=== PATIENT | female | born 1995 | race African-American/Black ===

== ENCOUNTER 2016-12-01 18:23 | Emergency (ER) | payer SELFPAY ==
[~2016-12-01] VITALS: Ht 162.6 cm; Wt 40.7 kg
[2016-12-01 18:32] VITALS: BP 140/77; PULSE 74; RESP 16; TEMP 98.3; O2SAT 97
--- NOTE | 2016-12-01 18:43 | PD ---
HPI Chief Complaint: Manager Java Problem/Complaint Time Seen by Provider: 18:36 Travel History International Travel<30 days: No Contact w/Intl Traveler<30days: No Traveled to known affect area: No History of Present Illness HPI This 21-year-old female is complaining of lower abdominal discomfort. She says she's noted the odor of she has not noticed much discharge. She does not believe she is . She just finished her period a few days ago. She has never been PFSH Past Medical History ?: Not Social History Tobacco Use: No Allergies-Medications (Allergen,Severity, Reaction): Coded Allergies: No Known Allergies (Unverified , 12/01/16) Review of Systems General / Constitutional: No: Fever, Chills Eyes: No: Diploplia, Blurred Vision HENT: No: Headaches Cardiovascular: No: Chest Pain or Discomfort, Palpitations Respiratory: No: Cough Gastrointestinal: No: Nausea, Vomiting Genitourinary: Positive: Discharge Musculoskeletal: No: Myalgias Skin: No Rash Hematologic/Lymphatic: No: Easy Bruising Physical Exam Narrative GENERAL: Thin female no acute distress SKIN: Focused skin assessment warm/dry. HEAD: Atraumatic. Normocephalic. EYES: Pupils equal and round. No scleral icterus. No injection or drainage. ENT: No nasal bleeding or discharge. Mucous membranes pink and moist. NECK: Trachea midline. No JVD. Pelvic: There is a large amount of white vaginal discharge. Uterus is not palpably enlarged. There is no pain with movement of the cervix MUSCULOSKELETAL: No obvious deformities. No clubbing. No cyanosis. No edema. NEUROLOGICAL: Awake and alert. No obvious cranial nerve deficits. Motor grossly within normal limits. Normal speech. PSYCHIATRIC: Appropriate mood and affect; insight and judgment normal. Data Data Last Documented VS Vital Signs Date Time Temp Pulse Resp B/P Pulse Ox O2 Delivery O2 Flow Rate FiO2 12/01/16 18:32 98.3 74 16 140/77 97 Orders Gc And Chlamydia Pcr (12/01/16 18:42) Wet Prep Profile (12/01/16 18:42) Ua Includes Microscopic (12/01/16 18:42) Ed Urine Pregnancytest Poc (12/01/16 18:42) Labs Laboratory Tests Test 12/01/16 12/01/16 18:45 19:00 Urine Color YELLOW Urine Turbidity MOD Urine pH 5.5 Urine Specific [place] 1.013 Urine Protein NEG mg/dL Urine Glucose (UA) NEG mg/dL Urine Ketones NEG mg/dL Urine Occult Blood NEG Urine Nitrite NEG Urine Bilirubin NEG Urine Leukocyte Esterase NEG Urine WBC 0-2 /hpf Urine Squamous Epithelial 0-5 /hpf Cells Urine Bacteria MANY /hpf Urine Mucus MOD /lpf Clue Cells (Wet Prep) NONE SEEN Vaginal Trichomonas (Wet Prep) NONE SEEN Vaginal Yeast (Wet Prep) NONE SEEN MDM Medical Decision Making Medical Screen Exam Complete: Yes Emergency Medical Condition: Yes Medical Record Reviewed: Yes Differential Diagnosis Differential includes vaginitis, cervicitis Narrative Course Prep is negative for clue cells and Trichomonas as well as yeast. Clinically this appears to be vaginitis and not cervicitis as she is not tender with movement of the cervix. I recommended treatment with Flagyl. Diagnosis Primary Impression: Vaginitis Qualified Code: N76.0 - Acute vaginitis Scripts Metronidazole (Flagyl)500 Mg Oap107 Mg PO TID 7 Days Ref 0 Prov:Hemant Alejandre MD 12/01/16 Disposition: 01 DISCHARGE HOME Condition: Stable Hemant Alejandre MD Dec 01, 2016 18:43
[2016-12-01 18:54] LABS: BLOOD, URINE NEG (NEG); GLUCOSE,URINE NEG (NEG); KETONE, URINE NEG (NEG); NITRITE,URINE NEG (NEG); PH, URINE 5.5 (5.0-8.5)
[2016-12-01 19:06] LABS: URINE COLOR YELLOW (YELLW/STRAW)
[2016-12-01 19:07] LABS: MUCUS URINE MOD /lpf (OCC)
[2016-12-01 19:08] LABS: BACTERIA, URINE MANY /hpf; SQUAMOUS EPITHELIAL CELL URINE 0-5 /hpf (0-5); WBC, URINE 0-2 /hpf (0-5)
[2016-12-01] MEDS ORDERED: FLUCONAZOLE 100 MG TAB PO ONE (19:30)
[2016-12-01] MEDS ORDERED: METR-1 PO (19:30)
[2016-12-01 19:43] VITALS: BP 108/72
[2016-12-01 23:47] LABS: CHLAMYDIA PCR DETECTED (NOT DETECT); NEISSERIA PCR NOT DETECTED (NOT DETECT)
== END 2016-12-01 19:45 | disposition home or self-care (01) ==
LOC: PHED 18:23
DX: N76.0 Acute vaginitis (principal); A56.02 Chlamydial vulvovaginitis
CPT/HCPCS: 81001; 84703; 87210; 87491; 87591; 99283